=== PATIENT | female | born 1975 | race Hispanic/Latino ===

== ENCOUNTER 2017-10-11 16:01 | Emergency (ER) | payer BC ==
--- OUTSIDE RECORDS SUMMARY | 2017-10-11 16:04 | XMS REPORT | Summary of Care ---
:1975 Author Organization [facility] Address [address] [place] [id number]- Encounter HQ [email or web address]_latisha(EMORY) [id number] Date(s): 01/12/16 - 01/12/[address] [address]- Discharge Disposition: Home or Self Care Attending Physician: Javier Ford MD Referring Physician: Javier Ford MD Vital Signs Most recent to oldest 1 2 3 [Reference Range]: Height 162.56 cm (01/11/16 11:45 AM) Blood Pressure 129/81 mmHg 122/70 mmHg 106/70 mmHg [90-140/60-90 mmHg] (01/12/16 4:45 PM) (01/12/16 3:45 PM) (01/12/16 3:42 PM) Respiratory Rate [14-20 18 BRMIN 12 BRMIN 15 BRMIN BRMIN] (01/12/16 4:45 PM) *LOW* (01/12/16 3:42 PM) (01/12/16 3:45 PM) Peripheral Pulse Rate 82 bpm 70 bpm 67 bpm [60-100 bpm] (01/12/16 4:45 PM) (01/12/16 3:45 PM) (01/12/16 8:26 AM) Weight 76.818 kg (01/11/16 11:45 AM) Body Mass Index 29.07 m2 (01/11/16 11:45 AM) Problem List Condition Effective Dates Status Health Status Informant Abnormal vaginal bleeding1 01/12/12 Active Constipation2 01/03/12 Active Fatigue3 01/03/12 Active Generalized abdominal pain4 01/03/12 Active Menorrhagia5 01/03/12 Active Vitamin D deficiency6 01/03/12 Active 1Data migrated from [employer] on 07/25/14.2Data migrated from [employer] on 07/25/14.3Data migrated from [employer] on 07/25/14.4Data migrated from [employer] on 07/25/14.5Data migrated from [employer] on 07/25/14.6Data migrated from [employer] on 07/25/14. Allergies, Adverse Reactions, Alerts Substance Reaction Severity Status NKFA Active penicillins Active Medications acetaminophen (ANES) (ANES) Route: IV, Drug form: INJ, Start date: 01/12/16 13:56:00 POLICY SERVICES REPRESENTATIVE, Stop date: 14:56:00 POLICY SERVICES REPRESENTATIVE Start Date: 01/12/16 Stop Date: 01/12/16 Status: CompletedANES diphenhydrAMINE 12.5 mg, 0.25 mL, Route: IVP, Drug form: INJ, Q6H, Dosing Weight 76.818, kg, PRN Itching, Start date: 01/12/16 10:11:00 POLICY SERVICES REPRESENTATIVE, Duration: 30 day, Stop date: 10:10:00 POLICY SERVICES REPRESENTATIVE Notes: (Same as: Benadryl) Start Date: 01/12/16 Stop Date: 01/12/16 Status: DiscontinuedANES flumazenil 0.2 mg, 2 mL, Route: IVP, Drug form: INJ, PRN, Dosing Weight 76.818, kg, PRN Benzodiazepine Reversal, Initial dose, Start date: 01/12/16 10:11:00 POLICY SERVICES REPRESENTATIVE, Duration: 30 day, Stop date: 02/11/16 10:10:00 POLICY SERVICES REPRESENTATIVE Notes: (Same as: Romazicon) Start Date: 01/12/16 Stop Date: 01/12/16 Status: DiscontinuedANES HYDROmorphone 0.5 mg, 0.25 mL, Route: IVP, Drug form: INJ, Q5Min, Dosing Weight 76.818, kg, PRN Pain Score 7-10, Start date: 01/12/16 10:11:00 POLICY SERVICES REPRESENTATIVE, Duration: 4 doses or times, Stop date: Limited # of times Notes: Same as Dilaudid Start Date: 01/12/16 Stop Date: 01/12/16 Status: DiscontinuedANES meperidine 12.5 mg, 0.25 mL, Route: IVP, Drug form: INJ, Q30Min, Dosing Weight 76.818, kg, PRN Other -See Comment, For shivering, Start date: 01/12/16 10:11:00 POLICY SERVICES REPRESENTATIVE, Duration: 2 doses or times, Stop date: Limited # of times Notes: (Same As: Demerol) Start Date: 01/12/16 Stop Date: 01/12/16 Status: DiscontinuedANES morphine Sulfate 2 mg, 1 mL, Route: IVP, Drug form: INJ, Q5Min, Dosing Weight 76.818, kg, PRN Pain Score 4-6, Start date: 01/12/16 10:11:00 POLICY SERVICES REPRESENTATIVE, Duration: 5 doses or times, Stop date: Limited # of times Notes: (Same as:MORPhine Sulfate) Start Date: 01/12/16 Stop Date: 01/12/16 Status: DiscontinuedANES naloxone 0.4 mg, 1 mL, Route: IVP, Drug form: INJ, Q2MIN, Dosing Weight 76.818, kg, PRN Narcotic Reversal, Start date: 01/12/16 10:11:00 POLICY SERVICES REPRESENTATIVE, Duration: 8 doses or times , Stop date: Limited # of times Notes: Same as Narcan Start Date: 01/12/16 Stop Date: 01/12/16 Status: DiscontinuedANES ondansetron 4 mg, 2 mL, Route: IVP, Drug form: INJ, ONCE, Dosing Weight 76.818, kg, PRN Nausea & Vomiting, Start date: 01/12/16 10:11:00 POLICY SERVICES REPRESENTATIVE Notes: (Same as: Phuc) MEDICATION WASTE Product Size: 4 mgProduct Wasted: ___ mg Start Date: 01/12/16 Stop Date: 01/12/16 Status: DiscontinuedCleocin Phosphate (ANES) (ANES) Route: IV, Drug form: INJ, Start date: 01/12/16 10:24:00 POLICY SERVICES REPRESENTATIVE, Stop date: 11:24:00 POLICY SERVICES REPRESENTATIVE Start Date: 01/12/16 Stop Date: 01/12/16 Status: Completedclindamycin + sodium chloride 0.9% INJ 50 mL 900 mg, 6 mL, Route: IVPB, ONCE, Dosing Weight 76.818, kg, Start date: 01/12/16 8:16:00 POLICY SERVICES REPRESENTATIVE, Stop date: 01/12/16 8:16:00 POLICY SERVICES REPRESENTATIVE Notes: (Same As: Cleocin) Start Date: 01/12/16 Stop Date: 01/12/16 Status: Ordereddexamethasone (ANES) Route: IV, Drug form: INJ, ONCE, Stop date: 01/12/16 10:57:00 POLICY SERVICES REPRESENTATIVE Start Date: 01/12/16 Stop Date: 01/12/16 Status: Completedfamotidine (ANES) Route: IV, Drug form: INJ, ONCE, Stop date: 01/12/16 10:57:00 POLICY SERVICES REPRESENTATIVE Start Date: 01/12/16 Stop Date: 01/12/16 Status: CompletedfentaNYL (ANES) Route: IV, Drug form: INJ, ONCE, Stop date: 01/12/16 10:57:00 POLICY SERVICES REPRESENTATIVE Start Date: 01/12/16 Stop Date: 01/12/16 Status: Completedglycopyrrolate (ANES) Route: IV, Drug form: INJ, ONCE, Stop date: 01/12/16 14:22:00 POLICY SERVICES REPRESENTATIVE Start Date: 01/12/16 Stop Date: 01/12/16 Status: CompletedHyper-Cuts diet supplement Hyper-Cuts diet supplement, one tablet, PO, Daily, Refill(s) 0 Start Date: 01/11/16 Status: OrderedLactated Ringers 1,000 mL 1,000 mL, Rate: 25 ml/hr, Infuse over: 40 hr, Route: IV, Dosing Weight 76.818 kg , Total Volume: 1,000, Start date: 01/12/16 8:15:00 POLICY SERVICES REPRESENTATIVE, Duration: 30 day, Stop date: 02/11/16 8:14:00 POLICY SERVICES REPRESENTATIVE Start Date: 01/12/16 Stop Date: 01/12/16 Status: Discontinuedlidocaine (ANES) Route: IV, Drug form: INJ, ONCE, Stop date: 01/12/16 10:57:00 POLICY SERVICES REPRESENTATIVE Start Date: 01/12/16 Stop Date: 01/12/16 Status: CompletedLR 1000 mL INJ (ANES) Route: IV, Total Volume: 1,000, Start date: 01/12/16 10:07:00 POLICY SERVICES REPRESENTATIVE, Stop date: 11:07:00 POLICY SERVICES REPRESENTATIVE Start Date: 01/12/16 Stop Date: 01/12/16 Status: Completedmidazolam (ANES) Route: IV, Drug form: SOLN, ONCE, Stop date: 01/12/16 10:57:00 POLICY SERVICES REPRESENTATIVE Start Date: 01/12/16 Stop Date: 01/12/16 Status: Completedmorphine Sulfate (ANES) Route: IV, Drug form: INJ, ONCE, Stop date: 01/12/16 14:22:00 POLICY SERVICES REPRESENTATIVE Start Date: 01/12/16 Stop Date: 01/12/16 Status: Completedmultivitamin one tablet, PO, Daily, 0 Refill(s) Start Date: 01/11/16 Status: Orderedneostigmine (ANES) Route: IV, Drug form: INJ, ONCE, Stop date: 01/12/16 14:22:00 POLICY SERVICES REPRESENTATIVE Start Date: 01/12/16 Stop Date: 01/12/16 Status: Completedondansetron (ANES) Route: IV, Drug form: INJ, ONCE, Stop date: 01/12/16 14:22:00 POLICY SERVICES REPRESENTATIVE Start Date: 01/12/16 Stop Date: 01/12/16 Status: Completedphenylephrine (ANES) Route: IV, Drug form: INJ, ONCE, Stop date: 01/12/16 12:32:00 POLICY SERVICES REPRESENTATIVE Start Date: 01/12/16 Stop Date: 01/12/16 Status: Completedpropofol (ANES) Route: IV, Drug form: INJ, ONCE, Stop date: 01/12/16 10:57:00 POLICY SERVICES REPRESENTATIVE Start Date: 01/12/16 Stop Date: 01/12/16 Status: Completedrocuronium (ANES) Route: IV, Drug form: INJ, ONCE, Stop date: 01/12/16 10:57:00 POLICY SERVICES REPRESENTATIVE Start Date: 01/12/16 Stop Date: 01/12/16 Status: CompletedSolodyn one tablet (mg unknown), PO, Daily, 0 Refill(s) Start Date: 01/11/16 Status: Ordered Results ELECTROLYTES Most recent to oldest [Reference Range]: 1 Sodium Lvl [135-145 mEq/L] 145 mEq/L (01/11/16 12:07 PM) Potassium Lvl [3.5-5.1 mEq/L] 4.4 mEq/L (01/11/16 12:07 PM) Chloride Lvl [95-109 mEq/L] 108 mEq/L (01/11/16 12:07 PM) CO2 [24-32 mEq/L] 27 mEq/L (01/11/16 12:07 PM) AGAP [10.0-20.0 mEq/L] 14.4 mEq/L (01/11/16:07 PM) CHEM PANEL Most recent to oldest [Reference Range]: 1 Creatinine Lvl [0.50-1.40 mg/dL] 0.87 mg/dL (01/11/16:07 PM) eGFR 83 mL/min/1.73m2 1 *NA* (01/11/16:07 PM) BUN [7-22 mg/dL] 8 mg/dL (01/11/16:07 PM) B/C Ratio [6-25] 9 (01/11/16: PM) Glucose Lvl [70-99 mg/dL] 87 mg/dL (01/11/16:07 PM) Total Protein [6.4-8.4 g/dL] 7.4 g/dL (01/11/16:07 PM) Albumin Lvl [3.5-5.0 g/dL] 3.9 g/dL (01/11/16 12:07 PM) Globulin [2.7-4.2 g/dL] 3.5 g/dL (01/11/16:07 PM) A/G Ratio [0.7-1.6] 1.1 (01/11/16:07 PM) Calcium Lvl [8.5-10.5 mg/dL] 8.9 mg/dL (01/11/16:07 PM) ALT [0-65 unit/L] 37 unit/L (01/11/16:07 PM) AST [0-37 unit/L] 25 unit/L (01/11/16 12:07 PM) Alk Phos [39-136 unit/L] 56 unit/L (01/11/16 12:07 PM) Bili Total [0.2-1.3 mg/dL] 1.3 mg/dL (01/11/16 12:07 PM) 1Result Comment: The eGFR is calculated using the CKD-EPI formula. In most young , healthy individualsthe eGFR will be >90 mL/min/1.73m2. The eGFR declines with age. An eGFR of 60-89 may be normal in some populations, particularly the elderly, for whom the CKD-EPI formula has not been extensively validated. Use of the eGFR is not recommended in the following populations: Individuals with unstable creatinine concentrations, including patients and those with serious co-morbid conditions. Patients with extremes in muscle mass or diet. The data above are obtained from the National Kid[employer] Disease Education Program ( NKDEP) which additionally recommends that when the eGFR is used in patients with extremes of body mass index for purposesof drug dosing, the eGFR should be multiplied by the estimated BMI.HEMATOLOGY Most recent to oldest [Reference Range]: 1 WBC [3.7-10.4 K/CMM] 4.0 K/CMM (01/11/16:07 PM) RBC [4.20-5.40 M/CMM] 4.73 M/CMM (01/11/16:07 PM) Hgb [12.0-16.0 g/dL] 10.0 g/dL *LOW* (01/11/16:07 PM) Hct [36.0-48.0 %] 33.0 % *LOW* (01/11/16:07 PM) MCV [80.0-98.0 fL] 69.7 fL *LOW* (01/11/16:07 PM) MCH [27.0-31.0 pg] 21.2 pg *LOW* (01/11/16:07 PM) MCHC [32.0-36.0 g/dL] 30.4 g/dL *LOW* (01/11/16:07 PM) RDW [11.5-14.5 %] 18.0 % *HI* (01/11/16:07 PM) Platelet [133-450 K/CMM] 379 K/CMM (01/11/16:07 PM) MPV [7.4-10.4 fL] 7.8 fL (01/11/16:07 PM) Segs [45.0-75.0 %] 39.5 % *LOW* (01/11/16:07 PM) Lymphocytes [20.0-40.0 %] 46.3 % *HI* (11/15/16 12:07 PM) Monocytes [2.0-12.0 %] 9.2 % (01/11/16 12:07 PM) Eosinophils [0.0-4.0 %] 3.2 % (01/11/16 12:07 PM) Basophils [0.0-1.0 %] 1.8 % *HI* (01/11/16 12:07 PM) Segs-Bands # [1.5-8.1 K/CMM] 1.6 K/CMM (01/11/16 12:07 PM) Lymphocytes # [1.0-5.5 K/CMM] 1.8 K/CMM (01/11/16 12:07 PM) Monocytes # [0.0-0.8 K/CMM] 0.4 K/CMM (01/11/16 12:07 PM) Eosinophils # [0.0-0.5 K/CMM] 0.1 K/CMM (01/11/16 12:07 PM) Basophils # [0.0-0.2 K/CMM] 0.1 K/CMM (01/11/16 12:07 PM) Hypochrom [None Seen] 1+ (01/11/16 12:07 PM) Microcyte [None Seen] 2+ *ABN* (01/11/16 12:07 PM) Tear Cell [None Seen] Moderate *ABN* (01/11/16 12:07 PM) Plt Morph Normal (01/11/16 12:07 PM) PT [12.0-14.7 seconds] 12.7 seconds (01/11/16 12:07 PM) INR [0.85-1.17] 0.93 (01/11/16 12:07 PM) PTT [22.9-35.8 seconds] 29.2 seconds (01/11/16 12:07 PM) Immunizations No data available for this section Procedures Procedure Date Related Diagnosis Body Site Breast augmentation section1 Miscellaneous operations2 1x 42armlift Social History Social History Type Response Smoking Status Never smoker; Exposure to Tobacco Smoke None; Cigarette Smoking Last 365 Days No; Reg Smoking Cessation Counseling Yes Assessment and Plan No data available for this section
--- OUTSIDE RECORDS SUMMARY | 2017-10-11 16:04 | XMS REPORT | Continuity of Care Document ---
:1975 Author Organization Interface Problems Problem Status Onset Classification Date Comments Source Date Reported [id number], [id number], Active 01/03/20 [facility] [id number] ENCOUNTER FOR ROCHELLE Abnormal Active 01/12/20 Problem 01/15/2016 Data migrated [facility] vaginal 12 from [facility] bleeding<sup>1< Centricity on /sup> 07/25/14. Constipation<ferguson Active 01/03/20 Problem 01/15/2016 Data migrated [facility] p>2</sup> 12 from [facility] Centricity on 07/25/14. Fatigue<sup>3</ Active 01/03/20 Problem 01/15/2016 Data migrated [facility] sup> 12 from [facility] Centricity on 07/25/14. Generalized Active 01/03/20 Problem 01/15/2016 Data migrated [facility] abdominal 12 from [facility] pain<sup>4</sup Centricity on > 07/25/14. Menorrhagia<sup Active 01/03/20 Problem 01/15/2016 Data migrated [facility] >5</sup> 12 from [facility] Centricity on 07/25/14. Vitamin D Active 01/03/20 Problem 01/15/2016 Data migrated [facility] deficiency<sup> 12 from [facility] 6</sup> Centricity on 07/25/14. Medications Medication Details Route Status Patient Ordering Order Source Instructions Provider Date ondansetron Route: IV, Drug Inactive 01/11/ (ANES) form: INJ, ONCE, 2015 Stop date: [facility] 01/12/16 14:22:00 PROGRAMMING COORDINATOR glycopyrrolate Route: IV, Drug Inactive 01/11/ (ANES) form: INJ, ONCE, 2015 [facility] Stop date: [facility] 01/12/16 14:22:00 PROGRAMMING COORDINATOR morphine Sulfate Route: IV, Drug Inactive 01/11/ (ANES) form: INJ, ONCE, 2015 [facility] Stop date: [facility] 01/12/16 14:22:00 PROGRAMMING COORDINATOR neostigmine Route: IV, Drug Inactive (ANES) form: INJ, ONCE, 2015 [facility] Stop date: [facility] 01/12/16 14:22:00 PROGRAMMING COORDINATOR acetaminophen Route: IV, Drug Inactive MH (ANES) (ANES) form: INJ, Start 2015 [facility] date: 01/12/16 [facility] 13:56:00 PROGRAMMING COORDINATOR, Stop date: 01/12/16 14:56:00 PROGRAMMING COORDINATOR phenylephrine Route: IV, Drug Inactive (ANES) form: INJ, ONCE, 2015 [facility] Stop date: [facility] 01/12/16 12:32:00 PROGRAMMING COORDINATOR propofol (ANES) Route: IV, Drug Inactive form: INJ, ONCE, 2015 [facility] Stop date: [facility] 01/12/16 10:57:00 PROGRAMMING COORDINATOR midazolam (ANES) Route: IV, Drug Inactive form: SOLN, 2015 [facility] , Stop date: [facility] 01/12/16 10:57:00 PROGRAMMING COORDINATOR fentaNYL (ANES) Route: IV, Drug Inactive form: INJ, ONCE, 2015 [facility] Stop date: [facility] 01/12/16 10:57:00 PROGRAMMING COORDINATOR lidocaine (ANES) Route: IV, Drug Inactive form: INJ, ONCE, 2015 [facility] Stop date: [facility] 01/12/16 10:57:00 PROGRAMMING COORDINATOR rocuronium (ANES) Route: IV, Drug Inactive form: INJ, ONCE, 2015 [facility] Stop date: [facility] 01/12/16 10:57:00 PROGRAMMING COORDINATOR famotidine (ANES) Route: IV, Drug Inactive form: INJ, ONCE, 2015 [facility] Stop date: [facility] 01/12/16 10:57:00 PROGRAMMING COORDINATOR dexamethasone Route: IV, Drug Inactive (ANES) form: INJ, ONCE, 2015 [facility] Stop date: [facility] 01/12/16 10:57:00 PROGRAMMING COORDINATOR Cleocin Phosphate Route: IV, Drug Inactive (ANES) (ANES) form: INJ, Start 2015 [facility] date: 01/12/16 [facility] 10:24:00 PROGRAMMING COORDINATOR, Stop date: 01/12/16 11:24:00 PROGRAMMING COORDINATOR Ondansetron 4 mg, 2 mL, Inactive Route: IVP, Drug 2015 [facility] form: INJ, ONCE, [facility] Dosing Weight 76.818, kg, PRN Nausea & Vomiting, Start date: 01/12/16 10:11:00 CSTNotes: (Same as: Zofran) MEDICATION WASTE Product Size: 4 mg Product Wasted: ___ mg Diphenhydramine 12.5 mg, 0.25 Inactive mL, Route: IV2015 [facility] Drug form: INJ, City Q6H, Dosing Weight 76.818, kg, PRN Itching, Start date: 01/12/16 10:11:00 PROGRAMMING COORDINATOR, Duration: 30 day, Stop date: 02/11/16 10:10:00 CSTNotes: (Same as: Benadryl) Meperidine 12.5 mg, 0.25 Inactive mL, Route: IV2015 [facility] Drug form: INJ, City Q30Min, Dosing Weight 76.818, kg, PRN Other -See Comment, For shivering, Start date: 01/12/16 10:11:00 PROGRAMMING COORDINATOR, Duration: 2 doses or times, Stop date: Limited # of timesNotes: (Same As: Demerol) Naloxone 0.4 mg, 1 mL, Inactive Route: IVP, Drug 2015 [facility] form: INJ, [place] Q2MIN, Dosing Weight 76.818, kg, PRN Narcotic Reversal, Start date: 01/12/16 10:11:00 PROGRAMMING COORDINATOR, Duration: 8 doses or times, Stop date: Limited # of timesNotes: Same as Narcan Morphine 2 mg, 1 mL, Inactive Route: IVP, Drug 2015 [facility] form: INJ, City Q5Min, Dosing Weight 76.818, kg, PRN Pain Score 4-6, Start date: 01/12/16 10:11:00 PROGRAMMING COORDINATOR, Duration: 5 doses or times, Stop date: Limited # of timesNotes: (Same as:MORPhine Sulfate) Flumazenil 0.2 mg, 2 mL, Inactive Route: IVP, Drug 2015 [facility] form: INJ, PRN, City Dosing Weight 76.818, kg, PRN Benzodiazepine Reversal, Initial dose, Start date: 01/12/16 10:11:00 PROGRAMMING COORDINATOR, Duration: 30 day, Stop date: 02/11/16 10:10:00 CSTNotes: (Same as: Romazicon) Hydromorphone 0.5 mg, 0.25 mL, Inactive Route: IVP, Drug 2015 [facility] form: INJ, City Q5Min, Dosing Weight 76.818, kg, PRN Pain Score 7-10, Start date: 01/12/16 10:11:00 PROGRAMMING COORDINATOR, Duration: 4 doses or times, Stop date: Limited # of timesNotes: Same as Dilaudid LR 1000 mL INJ Route: IV, Total Inactive (ANES) Volume: 1,000, 2015 [facility] Start date: [place] 01/12/16 10:07:00 PROGRAMMING COORDINATOR, Stop date: 01/12/16 11:07:00 PROGRAMMING COORDINATOR Clindamycin 900 mg, 6 mL, Inactive Route: IVPB, 2015 [facility] ONCE, Dosing [facility] Weight 76.818, kg, Start date: 01/12/16 8:16:00 PROGRAMMING COORDINATOR, Stop date: 01/12/16 8:16:00 CSTNotes: (Same As: Cleocin) Calcium Chloride 1,000 mL, Rate: Inactive 0.0014 MEQ/ML / 25 ml/hr, Infuse 2015 [facility] Potassium over: 40 hr, [facility] Chloride 0.004 Route: IV, MEQ/ML / Sodium Dosing Weight Chloride 0.103 76.818 kg, Total MEQ/ML / Sodium Volume: 1,000, Lactate 0.028 Start date: MEQ/ML Injectable 01/12/16 8:15:00 Solution PROGRAMMING COORDINATOR, Duration: 30 day, Stop date: 02/11/16 8:14:00 PROGRAMMING COORDINATOR Solodyn one tablet (mg Active unknown), PO, 2015 [facility] Daily, 0 [facility] Refill(s) multivitamin one tablet, PO, Active Daily, 0 2015 [facility] Refill(s) [facility] Hyper-Cuts diet Hyper-Cuts diet Active supplement supplement, one 2015 [facility] tablet, PO, [facility] Daily, Refill(s) 0 Allergies, Adverse Reactions, Alerts Substance Category Reaction Severity Reaction Status Date Comments Source type Reported NKFA Assertion Drug Active allergy [facility] penicillins Assertion Drug Active allergy [facility] Immunizations Immunization Date Given Site Status Last Updated Comments Source Results Order Name Results Value Reference Date Interpretation Comments Source Range CHEM PANEL eGFR 83 01/10 Result Comment: The eGFR is calculated using the CKD-EPI formula. In most young, healthy individuals the eGFR will be >90 mL/ min/1.73m2. The eGFR declines with age. An eGFR of 60-89 may be normal in mL/min/1. some populations, particularly the elderly, for whom the CKD-EPI formula has not been extensively validated. Use of the eGFR is not recommended in the following populations: [address] Individuals with unstable creatinine concentrations, including patients and those with serious co-morbid conditions. Patients with extremes in muscle mass or diet. The data above are obtained from the National Kidney Disease Education Program (NKDEP) which additionally recommends that when the eGFR is used in patients with extremes of body mass index for purposes of drug dosing, the eGFR should be multiplied by the estimated BMI. CHEM PANEL Glucose Lvl 87 mg/dL 70 - 99 01/10 [facility] CHEM PANEL Creatinine 0.87 0.50 - 01/10 Lvl mg/dL 1.40 [facility] CHEM PANEL AST 25 unit/L 0 - 37 01/10 [facility] CHEM PANEL ALT 37 unit/L 0 - 65 01/10 [facility] CHEM PANEL Alk Phos 56 unit/L 39 - 136 01/10 [facility] CHEM PANEL Bili Total 1.3 mg/dL 0.2 - 1.3 01/10 [facility] CHEM PANEL Total 7.4 g/dL 6.4 - 8.4 01/10 [facility] CHEM PANEL Sodium Lvl 145 meq/L 135 - 145 01/10 [facility] CHEM PANEL Potassium 4.4 meq/L 3.5 - 5.1 01/10 Lvl [facility] CHEM PANEL Chloride Lvl 108 meq/L 95 - 109 01/10 [facility] CHEM PANEL CO2 27 meq/L 24 - 32 01/10 [facility] CHEM PANEL Calcium Lvl 8.9 mg/dL 8.5 - 10.5 01/10 [facility] CHEM PANEL BUN 8 mg/dL 7 - 22 01/10 [facility] CHEM PANEL Albumin Lvl 3.9 g/dL 3.5 - 5.0 01/10 [facility] CHEM PANEL B/C Ratio 9 6 - 25 01/10 [facility] CHEM PANEL A/G Ratio 1.1 0.7 - 1.6 01/10 [facility] CHEM PANEL Globulin 3.5 g/dL 2.7 - 4.2 01/10 [facility] CHEM PANEL AGAP 14.4 10.0 - 01/10 MH meq/L 20.0 [facility] HEMATOLOGY PT 12.7 s 12.0 - 01/10 MH 14.7 [facility] HEMATOLOGY PTT 29.2 s 22.9 - 01/10 MH 35.8 /2015 [facility] HEMATOLOGY INR 0.93 0.85 - 01/10 MH 1.17 /2015 [facility] HEMATOLOGY MCH 21.2 pg 27.0 - 01/10 MH 31.0 [facility] HEMATOLOGY RDW 18.0 % 11.5 - 01/10 MH 14. [facility] HEMATOLOGY MPV 7.8 fL 7.4 - 10.4 01/10 [facility] HEMATOLOGY MCHC 30.4 g/dL 32.0 - 01/10 36.0 [facility] HEMATOLOGY Platelet 379 K/CMM 133 - 450 01/10 [facility] HEMATOLOGY Hct 33.0 % 36.0 - 01/10 48.0 /2015 [facility] HEMATOLOGY MCV 69.7 fL 80.0 - 01/10 98.0 [facility] HEMATOLOGY WBC 4.0 K/CMM 3.7 - 10.4 01/10 [facility] HEMATOLOGY RBC 4.73 4.20 - 01/10 M/CMM 5.40 /2015 [facility] HEMATOLOGY Hgb 10.0 g/dL 12.0 - 01/10 16.0 [facility] HEMATOLOGY Tear Cell Moderate None Seen 01/10 [facility] (01/11/16 12:07 PM) HEMATOLOGY Basophils # 0.1 K/CMM 0.0 - 0.2 01/10 [facility] HEMATOLOGY Hypochrom 1+ None Seen 01/10 [facility] (01/11/16 12:07 PM) [facility] HEMATOLOGY Microcyte 2+ None Seen 01/10 [facility] (01/11/16 12:07 PM) HEMATOLOGY Plt Morph Normal 01/10 [facility] (01/11/16 12:07 PM) [facility] HEMATOLOGY Lymphocytes 46.3 % 20.0 - 01/10 40.0 /2015 [facility] HEMATOLOGY Segs 39.5 % 45.0 - 01/10 75.0 [facility] HEMATOLOGY Eosinophils 3.2 % 0.0 - 4.0 01/10 [facility] HEMATOLOGY Monocytes 9.2 % 2.0 - 12.0 01/10 [facility] HEMATOLOGY Segs-Bands # 1.6 K/CMM 1.5 - 8.1 01/10 [facility] HEMATOLOGY Basophils 1.8 % 0.0 - 1.0 01/10 [facility] HEMATOLOGY Monocytes # 0.4 K/CMM 0.0 - 0.8 01/10 [facility] HEMATOLOGY Lymphocytes 1.8 K/CMM 1.0 - 5.5 01/10 [facility] HEMATOLOGY Eosinophils 0.1 K/CMM 0.0 - 0.5 01/10 [facility] Vital Signs Vital Sign Value Date Comments Source Respitory Rate 18 01/12/2016 [facility] Heart Rate 82 01/12/2016 [facility] Systolic (mm Hg) 129 01/12/2016 [facility] Diastolic (mm Hg) 81 01/12/2016 [facility] Systolic (mm Hg) 122 01/12/2016 [facility] Diastolic (mm Hg) 70 01/12/2016 [facility] Respitory Rate 12 01/12/2016 [facility] Heart Rate 70 01/12/2016 [facility] Systolic (mm Hg) 106 01/12/2016 [facility] Diastolic (mm Hg) 70 01/12/2016 [facility] Respitory Rate 15 01/12/2016 [facility] Heart Rate 67 01/12/2016 [facility] BMI Calculated 29.07 01/11/2016 [facility] Height 162.56 cm 01/11/2016 [facility] Weight 76.818 01/11/2016 [facility] Encounters Location Location Encounter Encounter Reason Attending ADM DC Status Source Details Type Number For Provider Date Date Visit Surgery [id number] Javier 01/11 01/11 [place] /2015 [facility] Outpatient [id number] HERMES 12/19 Active [facility] /2016 [place] Procedures Procedure Code Date Perfomer Comments Source Breast augmentation [id number] [facility] [id number] x 4 [facility] section<sup>1</sup> [place] [id number] up>
[2017-10-11] MEDS ORDERED: IBUPROFEN 400 MG TAB ONE (17:41)
--- NOTE | 2017-10-11 18:18 | RAD REPORT ---
EXAM DESCRIPTION: RAD - Shoulder Left 2 View - 10/11/2017 6:09 pm CLINICAL HISTORY: PAIN COMPARISON: No comparisons FINDINGS: No fracture or dislocation is identified.
--- NOTE | 2017-10-11 18:35 | EDPHYS ---
Physician Documentation [facility] Name: Conrado Alvarez Age: 42 yrs Sex: Female : 1975 Arrival Date: 10/11/2017 Time: 16:05 Bed 14 Private MD: None, None ED Physician Nikko Hong HPI: 10/11 17:23 This 42 yrs old Female presents to ER via Ambulatory with complaints of Arm cp Pain. 17:23 The patient or guardian complains of decreased range of motion, pain, that is acute. cp The complaints affect the left upper arm and left shoulder. Context: resulted from unknown cause. 17:23 Onset: The symptoms/episode began/occurred 2 day(s) ago. cp 17:23 Treatment prior to arrival includes: no previous treatment. Associated signs and cp symptoms: Pertinent negatives: injury. 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 - Social history:: Smoking status: Patient/guardian denies using tobacco. - Ebola Screening: : Patient denies travel to an Ebola-affected area in the 21 days before illness onset. ROS: 17:25 Constitutional: Negative for body aches, chills, fever, poor PO intake. cp 17:25 Eyes: Negative for injury, pain, redness, and discharge. cp 17:25 Neck: Negative for pain with movement, pain at rest, stiffness. 17:25 Cardiovascular: Negative for chest pain, edema, palpitations. 17:25 Respiratory: Negative for cough, shortness of breath, wheezing. 17:25 Abdomen/GI: Negative for abdominal pain, nausea, vomiting, and diarrhea. 17:25 MS/extremity: Positive for decreased range of motion, pain, tenderness, of the left shoulder and left upper arm, Negative for injury or acute deformity, paresthesias. 17:25 Skin: Negative for cellulitis, rash. 17:25 All other systems are negative. Exam: 17:30 Head/Face: Normocephalic, atraumatic. cp 17:30 Constitutional: The patient appears in no acute distress, alert, awake, non-diaphoretic, non-toxic, well developed, well nourished. 17:30 Eyes: Periorbital structures: appear normal, Conjunctiva: normal, no exudate, no cp injection, Lids and lashes: appear normal, bilaterally. 17:30 ENT: External ear(s): are unremarkable, Nose: is normal, Mouth: Lips: moist, Oral mucosa: moist, Posterior pharynx: is normal, airway is patent, no erythema, no exudate. 17:30 Neck: External neck: is normal, ROM/movement: is normal, is supple, without pain, no range of motions limitations, no nuchal rigidity. 17:30 Chest/axilla: Inspection: normal, Palpation: is normal, no crepitus, no tenderness. 17:30 Cardiovascular: Rate: normal, Rhythm: regular, Pulses: Pulses are 2+ in right radial artery and left radial artery. Heart sounds: murmur, not appreciated, rub, not appreciated, gallop, not appreciated. 17:30 Respiratory: the patient does not display signs of respiratory distress, Respirations: normal, no use of accessory muscles, no retractions, no splinting, no tachypnea, labored breathing, is not present, Breath sounds: are clear throughout, no decreased breath sounds, no stridor, no wheezing. 17:30 Abdomen/GI: Exam negative for discomfort, distension, guarding, Inspection: abdomen appears normal. 17:30 Musculoskeletal/extremity: Extremities: grossly normal except: noted in the lateral aspect left shoulder: decreased ROM, pain, tenderness, There is no evidence of deformity, Perfusion: the extremity is normally perfused throughout, Sensation intact. 17:30 Skin: cellulitis, is not appreciated, no rash present. Vital Signs: 16:11 BP 133 / 78; Pulse 77; Resp 17; Temp 98.6(O); Pulse Ox 99% on R/A; Pain 6/10; tw2 MDM: 17:04 Patient medically screened. cp 18:00 Differential diagnosis: dislocation, closed fracture, contusion, abrasion, tendonitis. cp 18:33 Data reviewed: vital signs, nurses notes, radiologic studies, plain films. cp 18:33 Test interpretation: by ED physician or midlevel provider: plain radiologic studies. cp Counseling: I had a detailed discussion with the patient and/or guardian regarding: the historical points, exam findings, and any diagnostic results supporting the discharge/admit diagnosis, radiology results, the need for outpatient follow up, a orthopedic surgeon, to return to the emergency department if symptoms worsen or persist or if there are any questions or concerns that arise at home. Response to treatment: the patient's symptoms have mildly improved after treatment, and as a result, I will discharge patient. 10/11 17:19 Order name: XRAY Shoulder LEFT 2 view; Complete Time: 18:30 cp 10/11 18:30 Interpretation: Report reviewed. cp 10/11 18:34 Order name: Dewayne; Complete Time: 18:48 cp Administered Medications: 17:35 Drug: Ibuprofen 800 mg Route: PO; iw 18:00 Follow up: Response: No adverse reaction iw Disposition: 10/11/17 18:34 Discharged to Home. Impression: Pain in left shoulder. - Condition is Stable. - Discharge Instructions: Shoulder Pain. - Prescriptions for Naprosyn 500 mg Oral Tablet - take 1 tablet by ORAL route 2 times per day take with food; 20 tablet. - Medication Reconciliation Form, Thank You Letter, Antibiotic Education, Prescription Opioid Use form. - Follow up: Curtis May MD; When: 2 - 3 days; Reason: Recheck today's complaints. - Problem is new. - Symptoms have improved. Addendum: 10/13/2017 15:38 Co-signature as Attending Physician, Nikko Hong MD. g s Signatures: Dispatcher [employer] EDMS Kerri Welch RN RN iw Benjamin Stokes PA PA cp Dyan Pineda RN RN Maci Hernandez RN RN 2 Nikko Hong MD MD Corrections: (The following items were deleted from the chart) 10/11 19:11 18:34 10/11/2017 18:34 Discharged to Home. Impression: Pain in left shoulder. Condition hb is Stable. Forms are Medication Reconciliation Form, Thank You Letter, Antibiotic Education, Prescription Opioid Use. Follow up: Dr. Curtis May; When: 2 - 3 days; Reason: Recheck today's complaints. Problem is new. Symptoms have improved. cp
--- NOTE | 2017-10-11 18:35 | ER ---
Nurse's Notes [facility] Name: Conrado Alvarez Age: 42 yrs Sex: Female : 1975 Arrival Date: 10/11/2017 Time: 16:05 Bed 14 Private MD: None, None Diagnosis: Pain in left shoulder Presentation: 10/11 16:10 Presenting complaint: Patient states: i dont know what i did but i cant lift my left tw2 arm, my left upper arm. Transition of care: patient was not received from another setting of care. Onset of symptoms was October 11, 2017. Risk Assessment: Do you want to hurt yourself or someone else? Patient reports no desire to harm self or others. Initial Sepsis Screen: Does the patient meet any 2 criteria? No. Patient's initial sepsis screen is negative. Does the patient have a suspected source of infection? No. Patient's initial sepsis screen is negative. Care prior to arrival: None. 16:10 Method Of Arrival: Ambulatory tw2 16:10 Acuity: ARIEL 4 tw2 Triage Assessment: 18:00 General: Appears in no apparent distress. Behavior is calm, cooperative. 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 - Social history:: Smoking status: Patient/guardian denies using tobacco. - Ebola Screening: : Patient denies travel to an Ebola-affected area in the 21 days before illness onset. Screenin:00 Abuse screen: Denies threats or abuse. Denies injuries from another. Nutritional iw screening: No deficits noted. Tuberculosis screening: No symptoms or risk factors identified. Fall Risk None identified. Assessment: 18:00 General: Appears in no apparent distress. comfortable, Behavior is calm, cooperative. iw Pain: Complains of pain in anterior aspect of left shoulder, left bicep, posterior aspect of left shoulder and left tricep Pain currently is 6 out of 10 on a pain scale. Neuro: Level of Consciousness is awake, alert, obeys commands, Oriented to person, place, time, situation, Moves all extremities. Full function. Cardiovascular: Patient's skin is warm and dry. Respiratory: Respiratory effort is even, unlabored, Respiratory pattern is regular, symmetrical. GI: No signs and/or symptoms were reported involving the gastrointestinal system. Derm: Skin is pink, warm \T\ dry. normal. Musculoskeletal: Range of motion: limited in left shoulder. Vital Signs: 16:11 BP 133 / 78; Pulse 77; Resp 17; Temp 98.6(O); Pulse Ox 99% on R/A; Pain 6/10; tw2 ED Course: 16:05 Patient arrived in ED. sb2 16:05 None, None is Private Physician. sb2 16:11 Triage completed. tw2 16:11 Arm band placed on. tw2 17:00 Benjamin Stokes PA is PHCP. cp 17:00 Nikko Hong MD is Attending Physician. cp 17:31 Kerri Welch, RN is Primary Nurse. iw 18:00 Patient has correct armband on for positive identification. iw 18:00 No provider procedures requiring assistance completed. Patient did not have IV access iw during this emergency room visit. 18:07 X-ray completed. Portable x-ray completed in exam room. Patient tolerated procedure ml well. 18:08 XRAY Shoulder LEFT 2 view In Process Unspecified. EDMS 18:33 Curtis May MD is Referral Physician. cp Administered Medications: 17:35 Drug: Ibuprofen 800 mg Route: PO; iw 18:00 Follow up: Response: No adverse reaction iw Outcome: 18:34 Discharge ordered by MD. cp 19:11 Discharged to home ambulatory. hb 19:11 Condition: stable 19:11 Discharge instructions given to patient, Instructed on discharge instructions, follow up and referral plans. medication usage, Demonstrated understanding of instructions, follow-up care, medications, Prescriptions given X 1. 19:11 Patient left the ED. hb Signatures: Dispatcher [employer] EDMS Kerri Welch RN RN iw Mayra Delaney ml Benjamin Stokes PA PA cp Baxter, Heather, RN RN hb Wise, Tara, RN RN tw2 Harper Camacho sb2
== END 2017-10-11 19:11 | disposition home or self-care (01) ==
LOC: ER 16:01
DX: M25.512 Pain in left shoulder (principal); Z88.0 Allergy status to penicillin
CPT/HCPCS: 99283